=== PATIENT | male | born 1980 | race Caucasian/White ===

== ENCOUNTER → 2018-08-11 | Outpatient (CLI) | payer OTHER ==
[~2018-08-11] MED LIST: GADOTERATE 5 MMOL/10ML VIAL. IVP ONE; ROPI0.5T PO
--- NOTE | 2018-08-11 10:04 | KCIC ---
MRI Brain with and without contrast History: Headaches and dizziness for 2 to 3 years Technique: Multiplanar, multi sequential pre and postcontrast MR imaging was performed of the brain. Comparison: None Findings: There is no evidence of recent infarct or cytotoxic edema. The ventricles, sulci, and cisterns are within normal limits in size and configuration. There is no significant midline shift, intraaxial mass effect, or focal abnormal extra-axial fluid collection. There are several scattered small foci of T2 and FLAIR hyperintense signal most notable of the bifrontal deep white matter, not associated with significant enhancement or mass effect. There is no nodular parenchymal or leptomeningeal enhancement. There is preservation of the major intracranial flow-voids at the skull base. The cerebellar tonsils are normal in location. There is no significant abnormality of the pineal gland or pituitary gland. There is mild bilateral ethmoid air cell mucosal thickening. There is moderate right maxillary sinus mucosal thickening, likely associated mucous retention cysts inferiorly. There is negligible left sphenoid sinus mucosal thickening. The mastoid air cells are aerated. There is preserved marrow signal of the clivus. Impression: 1. There are some scattered small foci of nonenhancing T2 and FLAIR hyperintense signal most numerous of the frontal lobes. White matter changes can be seen in patients with migraine headaches. Pattern is not particularly suggestive of an inflammatory demyelinating disease. Sequela of chronic microvascular ischemic disease would be atypical in a patient this age unless there are risk factors such as hypertension or diabetes. 2. There is paranasal sinus mucosal thickening as stated greatest of the right maxillary sinus. Electronically signed by: Garret Fuentes MD (08/11/2018 10:01 AM) [email or web address]
== END | disposition home or self-care (01) ==
LOC: KCIC MRI 08:18
PROVIDERS: ATTEND Internal Medicine
DX: J34.89 Other specified disorders of nose and nasal sinuses (principal); G43.909 Migraine, unspecified, not intractable, without status migrainosus; E78.01 Familial hypercholesterolemia; I10 Essential (primary) hypertension; G25.81 Restless legs syndrome; N52.8 Other male erectile dysfunction; Z90.79 Acquired absence of other genital organ(s); Z79.899 Other long term (current) drug therapy
CPT/HCPCS: 70553; A9575

== ENCOUNTER → 2018-08-17 | Outpatient (CLI) | payer OTHER ==
[~2018-08-17] MED LIST changes: -GADOTERATE 5 MMOL/10ML VIAL. IVP ONE
--- NOTE | 2018-08-17 14:44 | KCIC ---
MRA of the brain without contrast 08/17/2018 Clinical History: Headaches and dizziness for 2 to 3 years. Technique: Using 3-D time of flight techniques, a MRA of the major arterial structures surrounding the [place] was performed. 3D MIP reconstructed images were obtained. Findings: Comparison is made to patient's MRI of the brain dated 08/11/2018. MRA images of the anterior and posterior circulations are within normal limits. No area of stenosis or occlusion is seen. No intracranial aneurysm is seen. Impression: Negative study. Electronically signed by: Lance Galdamez MD (08/17/2018 2:41 PM) [id number]
== END | disposition home or self-care (01) ==
LOC: KCIC MRI 13:45
PROVIDERS: ATTEND Internal Medicine
DX: R51 Headache (principal); R42 Dizziness and giddiness; G25.9 Extrapyramidal and movement disorder, unspecified
CPT/HCPCS: 70544